=== PATIENT | female | born 1960 | race Caucasian/White ===

== ENCOUNTER 2022-05-16 05:35 | Day surgery (SDC) | payer OTHER ==
[~2022-05-16] VITALS: Ht 158 cm; Wt 81.0 kg
[~2022-05-16 05:35] MED LIST: DULOXETINE HCL60 MG PO; LISINOPRIL5 MG PO; METOPROLOL SUCC50 MG PO; MILK THISTLE500 MG PO; SUPER B MAXI C0.4 MG PO; VITAMIN K2 +D3 PO; XARELTO20 MG PO; [UNRECOGNIZED DRUG - OTHER] PO; [UNRECOGNIZED DRUG - OTHER] PO
[2022-05-17 06:38] LABS: BASOPHIL 0.8 % (0-2); EOSINOPHIL 3.3 % (0-7); HCT 32.7 % (37.0-47.0); HGB 11.1 g/dl (12.5-16.0); MCH 34.5 pg (25.0-31.0); MCHC 33.9 g/dL (32.0-36.0); MCV 101.6 fL (78.0-100.0); MONOCYTE 9.5 % (0-12); MPV 10.3 fL (6.0-9.5); NEUTROPHIL 58.2 % (41-80); NRBC 0; PLT 152 K/uL (150-400); RBC 3.22 M/uL (4.20-5.40); RDW 13.8 % (11.5-14.0); WBC 5.1 K/uL (4.0-10.5)
[2022-05-17 07:10] LABS: BUN/CREAT RATIO (CALC) 26.5 RATIO; CREATININE 0.68 mg/dL (0.51-0.95); POTASSIUM 4.6 mmol/L (3.5-5.1)
[2022-05-17] MEDS ORDERED: FEOSOL325 MG PO (08:38)
[2022-05-17] MEDS ORDERED: OXYCODONE-ACET1 EAC1 PO (08:38)
== END 2022-05-17 11:25 | disposition home or self-care (01) ==
LOC: FAS 05:35 → FMS 09:09 → FAS 05-17 11:25
PROVIDERS: Legal Medicine
DX: M17.12 Unilateral primary osteoarthritis, left knee (principal); M25.762 Osteophyte, left knee; M67.262 Synovial hypertrophy, not elsewhere classified, left lower leg; I48.91 Unspecified atrial fibrillation; I10 Essential (primary) hypertension; E78.5 Hyperlipidemia, unspecified
CPT/HCPCS: 36415; 73560; 80048; 85025; 86850; 86900; 86901; 94010; 94762; 97110; 97116; 97161; 97165; C1713; C1776; J0171; J0697; J1885; J2250; J2270; J2370; J2405; J2704; J2795; J3010; J7120